=== PATIENT | male | born 1955 | race Two or more races ===

== ENCOUNTER 2020-02-17 11:21 | Inpatient (IN) | payer MEDICARE, MEDICAID ==
[~2020-02-17] VITALS: Ht 175.3 cm; Wt 105.7 kg
[2020-02-17] MEDS ORDERED: HYDR12.54 PO (11:29)
[2020-02-17] MEDS ORDERED: LISI2.5T47 PO (11:29)
[2020-02-17] MEDS ORDERED: ACETAMINOPHEN 325MG TABLET PO STA (12:18)
[2020-02-17] MEDS ORDERED: IBUPROFEN 600MG TABLET PO STA (12:18)
[2020-02-17 12:42] LABS: BASOPHILS % 0.5 % (0.0-2.0); EOSINOPHILS % 1.4 % (0.0-5.0); HEMATOCRIT. 42.4 % (42.0-52.0); HEMOGLOBIN. 14.7 g/dL (14.0-18.0); LYMPHOCYTES % 10.5 % (20.0-50.0); MEAN CORPUSCULAR HEMOGLOBIN 31.7 pg (28.0-32.0); MEAN CORPUSCULAR VOLUME 91.3 fL (80.0-94.0); MEAN PLATELET VOLUME 9.4 fl (7.4-10.4); MONOCYTES % 10.4 % (2.0-8.0); NEUTROPHILS % 77.2 % (40.0-76.0); PLATELET 244 x1000/uL (130-400); RED BLOOD CELL COUNT 4.64 mill/uL (4.7-6.1); RED CELL DISTRIBUTION WIDTH 17.9 % (11.6-14.6)
[2020-02-17 12:50] LABS: PROTHROMBIN TIME 10.6 sec (9.6-11.0)
[2020-02-17 18:00] LABS: CLARITY URINE CLEAR (CLEAR); COLOR URINE YELLOW (YELLOW); KETONES URINE TRACE (NEGATIVE); LEUKOCYTE ESTERASE URINE 2+ (NEGATIVE); NITRITE URINE NEGATIVE (NEGATIVE); OCCULT BLOOD URINE NEGATIVE (NEGATIVE); PH URINE 6.5 (4.5-8.0); PROTEIN URINE NEGATIVE (NEGATIVE); UROBILINOGEN URINE 0.2 E.U./dL (0.2-1.0)
[2020-02-17] MEDS ORDERED: ACETAMINOPHEN 325MG TABLET PO PRN (18:15)
[2020-02-17] MEDS ORDERED: IPRATROPIUM/ALBUTEROL 0.5-3(2.5)MG/3ML NEB NEB PRN (18:15)
[2020-02-17] MEDS ORDERED: MAGNESIUM/ALUMINUM HYDROXIDE/SIMETHICONE 30ML UDC PO PRN (18:15)
[2020-02-17] MEDS ORDERED: ONDANSETRON HCL 4MG/2ML INJ IV PRN (18:15)
[2020-02-17] MEDS ORDERED: CLONIDINE 0.1MG TABLET PO PRN (18:15)
[2020-02-17] MEDS ORDERED: DOCUSATE SODIUM 100MG CAPSULE PO PRN (18:15)
[2020-02-17] MEDS ORDERED: NITROGLYCERIN 0.4MG TABLET SL SL PRN (18:15)
[2020-02-17] MEDS ORDERED: GUAIFENESIN 200MG/10ML SUGAR FREE UDC PO PRN (18:15)
[2020-02-17] MEDS ORDERED: ZOLPIDEM TARTRATE 5MG TABLET PO PRN (20:00)
[2020-02-17] MEDS ORDERED: CEFTRIAXONE 1 G PREMIX 50 ML IV SCH (20:30)
[2020-02-17] MEDS ORDERED: LEVOFLOXACIN 500MG PREMIX 100 ML IV SCH (21:00)
[2020-02-17] MEDS: TRAMADOL 50MG TABLET PO PRN (22:02)
[2020-02-17 23:47] LABS: CREATINE KINASE 376 IU/L (39-308)
[2020-02-17 23:51] LABS: CREATINE KINASE MB FRACTION 2.8 ng/mL (0.5-3.6)
[2020-02-18] VITALS: BP_SYST 142; BP_SYST 148; BP_DIAS 72; BP_DIAS 84
[2020-02-18] MEDS: ASCORBIC ACID 500 MG TABLET PO SCH ×3 (01:05→21:15)
[2020-02-18] MEDS: LISINOPRIL 20MG TABLET PO SCH ×3 (01:06→21:15)
[2020-02-18] MEDS: ENOXAPARIN 40MG/0.4ML SYR SUBCUT SCH ×2 (01:08→21:15)
[2020-02-18] MEDS: CEFTRIAXONE 1,000 MG in DEXTROSE 5% WATER 50 ML IV SCH (01:10)
[2020-02-18] MEDS: LEVOFLOXACIN 500MG PREMIX 100 ML IV SCH (02:49)
[2020-02-18] MEDS ORDERED: MELO-106 PO (03:53)
[2020-02-18] MEDS ORDERED: AMLO10TA80 PO (03:54)
[2020-02-18] MEDS: KETOROLAC 15MG/ML VIAL IV PRN ×2 (06:57→17:13)
[2020-02-18 07:25] LABS: CREATINE KINASE 335 IU/L (39-308)
[2020-02-18 07:26] LABS: CREATINE KINASE MB FRACTION 2.9 ng/mL (0.5-3.6)
[2020-02-18 08:00] VITALS: BP 126/73
[2020-02-18 08:08] LABS: OPIATES URINE SCREEN NEGATIVE (NEGATIVE); PHENCYCLIDINE URINE SCREEN NEGATIVE (NEGATIVE)
[2020-02-18 08:09] LABS: *AMPHETAMINES SCREEN URINE NEGATIVE (NEGATIVE); *BARBITURATES SCREEN URINE NEGATIVE (NEGATIVE); *BENZODIAZEPINES SCREEN URINE NEGATIVE (NEGATIVE); *COCAINE SCREEN URINE PRESUMTIVE POSITIVE (NEGATIVE); CANNABINOID URINE SCREEN NEGATIVE (NEGATIVE); METHADONE URINE SCREEN NEGATIVE (NEGATIVE)
[2020-02-18] MEDS: ZINC SULFATE 220 MG ( 50 ) CAPSULE PO SCH (08:57)
[2020-02-18 12:00] VITALS: BP 145/59
[2020-02-18] MEDS ORDERED: INFLUENZA VACCINE 05/PF 0.5 ML VIAL IM ONE (12:00)
[2020-02-18 16:00] VITALS: BP 123/65
[2020-02-18 20:00] VITALS: BP 157/98
[2020-02-19] VITALS (7 sets, daily range): BP systolic 134–142; BP diastolic 62–77
[2020-02-19] MEDS: CEFTRIAXONE 1,000 MG in DEXTROSE 5% WATER 50 ML IV SCH ×2 (00:32→21:19)
[2020-02-19] MEDS: LEVOFLOXACIN 500MG PREMIX 100 ML IV SCH (01:19)
[2020-02-19] MEDS: LISINOPRIL 20MG TABLET PO SCH (09:11)
[2020-02-19] MEDS: ZINC SULFATE 220 MG ( 50 ) CAPSULE PO SCH (09:11)
[2020-02-19] MEDS: ASCORBIC ACID 500 MG TABLET PO SCH ×2 (09:11→21:18)
[2020-02-19] MEDS: KETOROLAC 15MG/ML VIAL IV PRN ×2 (10:25→18:40)
[2020-02-19] MEDS: LISINOPRIL 5MG TABLET PO SCH (21:17)
[2020-02-19] MEDS: ENOXAPARIN 40MG/0.4ML SYR SUBCUT SCH (21:18)
[2020-02-19] MEDS: ACETAMINOPHEN 325MG TABLET PO PRN (21:41)
[2020-02-20] VITALS: BP 129/73
[2020-02-20] MEDS: TRAMADOL 50MG TABLET PO PRN ×2 (03:29→23:07)
[2020-02-20 04:00] VITALS: BP 132/69
[2020-02-20 08:00] VITALS: BP 116/68
[2020-02-20] MEDS: ZINC SULFATE 220 MG ( 50 ) CAPSULE PO SCH (09:00)
[2020-02-20] MEDS: LISINOPRIL 5MG TABLET PO SCH ×2 (09:01→21:09)
[2020-02-20] MEDS: ASCORBIC ACID 500 MG TABLET PO SCH ×2 (09:01→21:09)
[2020-02-20] MEDS: ENOXAPARIN 30MG/0.3ML SYR SUBCUT SCH ×2 (09:05→21:11)
[2020-02-20] MEDS: LEVOFLOXACIN 500MG TABLET PO SCH (11:38)
[2020-02-20] MEDS: ACETAMINOPHEN 325MG TABLET PO PRN ×2 (12:57→21:09)
[2020-02-20 16:00] VITALS: BP 146/84
[2020-02-20] MEDS: KETOROLAC 15MG/ML VIAL IV PRN (18:18)
[2020-02-20 20:00] VITALS: BP 158/88
[2020-02-20] MEDS: CEFTRIAXONE 1,000 MG in DEXTROSE 5% WATER 50 ML IV SCH (21:08)
[2020-02-21] VITALS: BP 136/85
[2020-02-21 04:00] VITALS: BP 153/84
[2020-02-21 08:00] VITALS: BP 148/61
[2020-02-21] MEDS: ENOXAPARIN 30MG/0.3ML SYR SUBCUT SCH (09:01)
[2020-02-21] MEDS: LISINOPRIL 5MG TABLET PO SCH (09:01)
[2020-02-21] MEDS: ZINC SULFATE 220 MG ( 50 ) CAPSULE PO SCH (09:01)
[2020-02-21] MEDS: ASCORBIC ACID 500 MG TABLET PO SCH (09:01)
[2020-02-21] MEDS: KETOROLAC 15MG/ML VIAL IV PRN ×2 (09:02→18:21)
[2020-02-21] MEDS: LEVOFLOXACIN 500MG TABLET PO SCH (10:33)
[2020-02-21] MEDS: TRAMADOL 50MG TABLET PO PRN (13:05)
[2020-02-21 16:52] VITALS: BP 144/85
[2020-02-21 18:21] VITALS: BP 142/90
== END 2020-02-21 19:08 | DRG 553 ==
LOC: ER 11:21 → 6EST 19:18 → EDBEDREQSVC 19:19 → EDBEDREQTM 19:19 → EDBEDREQ 19:19 → SUPCPDRO 19:52 → ENRESERV 21:50 → 6EST 02-18 11:59
PROVIDERS: ADMIT Internal Medicine; ATTEND Internal Medicine
DX: M16.11 Unilateral primary osteoarthritis, right hip (principal); N17.0 Acute kidney failure with tubular necrosis; E87.1 Hypo-osmolality and hyponatremia; N39.0 Urinary tract infection, site not specified; M62.82 Rhabdomyolysis; N40.0 Benign prostatic hyperplasia without lower urinary tract symptoms; I10 Essential (primary) hypertension; F14.10 Cocaine abuse, uncomplicated; G89.29 Other chronic pain; M21.859 Other specified acquired deformities of unspecified thigh; Z20.828 Contact with and (suspected) exposure to other viral communicable diseases; Z96.649 Presence of unspecified artificial hip joint; Z79.899 Other long term (current) drug therapy
CPT/HCPCS: 36415; 72192; 73502; 76881; 80048; 80061; 80305; 81003; 82550; 82553; 83036; 84145; 84484; 85025; 85651; 86140; 87426; 90686; 93970; 97162; 97166; 97530; 97535; 99285; J0696; J1650; J1885; J1956; J7040; J7060